=== PATIENT | male | born 1945 | race Two or more races ===

== ENCOUNTER 2024-11-23 17:28 | Emergency (ER) | payer MEDICARE, MEDICAID, SELFPAY ==
[2024-11-23 17:29] VITALS: BMI 29.9
--- NOTE | 2024-11-23 17:29 | EKG_ITS ---
[facility] Test Date: 2024-11-23 Pat Name: HAYDEN WILSON Department: Room: - Gender: Male Ultrasound Manager: : 1945 Requested By: Larry Rodriguez (IRVIN) Order Number: [id number] Reading MD: Larry Rodriguez (MASONRY TEACHER) Measurements Intervals [place] Rate: 76 P: 94 MO: 195 QRS: -73 QRSD: 147 T: 39 QT: 402 QTc: 453 Interpretive Statements SINUS RHYTHM WITH OCCASIONAL SUPRAVENTRICULAR PREMATURE COMPLEXES LEFT AXIS DEVIATION [QRS AXIS < -30] RIGHT BUNDLE BRANCH BLOCK [120+ ms QRS DURATION, UPRIGHT V1, 40+ ms S IN I/aVL/V4/V5/V6] POSSIBLE SEPTAL MYOCARDIAL INFARCTION , PROBABLY OLD [30 ms Q WAVE IN V1/V2] No previous ECG available for comparison /store/S0/[id number].pdf
[2024-11-23 17:49] VITALS: BP 142/87; PULSE 82; RESP 20; TEMP 37.1; O2SAT 95
--- NOTE | 2024-11-23 17:52 | XR_ITS ---
Examination: PA chest single view TECHNIQUE: Upright PA chest single view Date and time: November 23, 2024 1758 hours Comparison September 12, 2015 INDICATIONS: Chest pain today. FINDINGS: Normal heart size Stable granuloma left upper lobe. No unremarkable pneumonia or pulmonary edema. Moderate osteopenia IMPRESSION: No interval pneumonia or pulmonary edema
--- NOTE | 2024-11-23 17:52 | XR_ITS ---
Examination: CT brain head without contrast. 2-D sagittal coronal reconstructions Date and time of exam:02/23/2025 at 1815 hours Comparison December 06, 2010 INDICATIONS: Onset headache dizziness today CTDI: vol (mGy):43.5 DLP: (mGycm):815 Technique: Multiple CT axial sections of the brain have been obtained, 5 mm slice thickness. Contrast has not been administered. 2-D sagittal, coronal reconstructions have been obtained Low dose protocols were performed. One or more of the following dose reduction techniques were used; automated exposure control, adjustment of the mA and/or KV according to patient size, use of iterative reconstruction technique. Findings: No significant ventricular enlargement. Sclerotic calcified right optic globe Intra-axial or extra-axial hemorrhage density is not seen. No mass effect or midline shift Basal cisterns are not remarkable. Fourth ventricle is midline. Cranial vault intact. Impression: Negative for acute hemorrhage, mass effect or midline shift Acute ethmoid and sphenoid sinusitis
--- NOTE | 2024-11-23 17:53 | PD.EDRME ---
Rapid Medical Screening Exam RME Arrival date/time: 11/23/24 17:28 79-year-old male with developmental delay presents with sister who reports the patient has been having headaches and dizziness ongoing for the last couple of months Chief Complaint: Dizziness Time Seen by Provider: 11/23/24 17:30 Vital signs: Vital Signs Temperature 98.8 F 11/23/24 17:49 Pulse Rate 82 11/23/24 17:49 Respiratory Rate 20 11/23/24 17:49 Blood Pressure 142/87 H 11/23/24 17:49 Pulse Oximetry (%) 95 11/23/24 17:49 Oxygen Delivery Method Room Air 11/23/24 17:49
--- NOTE | 2024-11-23 19:13 | EDNOTE_ITS ---
ED Dizzyness RME/HPI General Chief Complaint: Dizziness Stated Complaint: DIZZINESS Time Seen by Provider: 11/23/24 17:30 Arrival date/time: 11/23/24 17:28 RME / HPI RME / HPI Narrative: 11/23/24 17:28 79-year-old male with developmental delay presents with sister who reports the patient has been having headaches and dizziness ongoing for the last couple of months This section includes all my notes and documentations, including HPI, PE, and ED course. 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 Sister states the patient normally ambulates with his walker. No fever or chills reported. No other complaints reported at this time. ROS: All negative except as documented in HPI. Physical Exam: General: Alert and oriented. Sinus congestion noted. Eyes: Conjunctivae and lids clear. ENT: Maxillary sinus tenderness with palpation bilaterally. Neck: Supple. Heart: RRR. Lungs: No respiratory distress. Good air movement. No rhonchi, wheezing, rales. Skin: Warm and dry. Neuro: Alert and oriented X 3. Cranial nerves II to XII grossly normal. No peripheral motor deficits. I reviewed all diagnostic test results. My interpretation of the EKG is sinus rhythm with no acute ST?T changes. My interpretation of the chest x-ray is negative for any acute findings. My review of the CT head report is acute ethmoid and sphenoid sinusitis. Blood tests and urine tests are unremarkable. Bedside COVID and Influenza swabs are negative. At this point, diagnoses include sinusitis. Treatment here included Augmentin. Recommend outpatient treatment. Based on my best medical judgment, made decision no further evaluation or treatment indicated at this time. Patient understands and agrees to the discharge instructions customized and printed, see below. Discharge Instructions from Dr. Anguiano: 1. After extensive evaluation, there is no life-threatening condition. Such as stroke or brain tumor or heart attack or pneumothorax (collapsed lung). You have severe sinus infection. Take Augmentin to kill the germs causing your sinus infection. 2. And prednisone to help decrease inflammation in your sinuses. 3. Tylenol/ibuprofen as needed. 4. Increase oral fluid. Your body needs extra when you are sick. 5. See a private doctor on 11/25/2024 for recheck. Ask to review all test results and official radiology reports, to make sure you receive all necessary follow-ups and monitoring. Ask for help until you are completely better. 6. Seek immediate medical care with worsening or with any concerns. William Anguiano MD Related Data Previous Rx's ?Medication ?Instructions ?Recorded albuterol sulfate 90 mcg/actuation 2 puff inhalation Q 6HR PRN 09/13/15 aerosol inhaler (ProAir HFA) SHORTNESS OF BREATH #1 in h amoxicillin 875 mg-potassium 1 tab PO BID #20 tabs clavulanate 125 mg tablet prednisone 20 mg tablet 20 mg PO QDAY 3 days #3 tabs 11/23/24 Allergies Allergy/AdvReac Type Severity Reaction Status Date / Time avocado Allergy Severe ANXIETY Verified 11/23/24 17:29 cinnamon Allergy Severe ANXIETY Verified 11/23/24 17:29 egg Allergy Severe ANXIETY Verified 11/23/24 17:29 Review of Systems Review of Systems Systems Reviewed: All systems reviewed, normal except as documented Past Medical History Social History SMOKING STATUS: Never smoker ED Exam Narrative Physical exam: As noted in HPI. Course Quality Measures none Orders Category Date Time Status Bedside COVID-19 Antigen Test NOW Care 11/23/24 19:28 Active Bedside Influenza A&B Antigen Test NOW Care 11/23/24 19:28 Completed EKG (ED ONLY) *Do not use* NOW Care 11/23/24 17:[address] head/brain wo con Stat Exams 11/23/24 17:52 Completed EKG (ED Only) Stat Exams 11/23/24 17:29 Draft XR chest 1V Stat Exams 11/23/24 17:52 Completed B-Type Natriuretic Peptide Stat Lab 11/23/24 18:59 Completed CBC Stat Lab 11/23/24 18:59 Completed Comprehensive Metabolic Panel Stat Lab 11/23/24 18:59 Completed Drug Screen,Urine Stat Lab 11/23/24 19:03 Completed Magnesium Stat Lab 11/23/24 18:59 Completed Partial Thromboplastin Time Stat Lab 11/23/24 18:59 Completed Prothrombin Time with INR Stat Lab 11/23/24 18:59 Completed Troponin I Stat Lab 11/23/24 18:59 Completed Urinalysis Stat Lab 11/23/24 19:03 Completed Amoxicillin/Pot Clav 875 [Augmentin 875] Med 11/23/24 20:06 Discontinued 1 tab PO X1 ONE Vital Signs Vital signs: Vital Signs Temperature 98.8 F 11/23/24 17:49 Pulse Rate 82 11/23/24 17:49 Respiratory Rate 20 11/23/24 17:49 Blood Pressure 142/87 H 11/23/24 17:49 Pulse Oximetry (%) 95 11/23/24 17:49 Oxygen Delivery Method Room Air 11/23/24 17:49 Dizziness MDM Narrative MDM Narrative:: Scribe Attestation: 11/23/24 - Moni Pope am scribing for and in the presence of Dr. Anguiano. 79yo male with a history of developmental delay, arthritis brought in by his sister presents to the ED for complaints of headache and dizziness. Sister states the patient normally ambulates with his walker. She states the patient has been complaining of a headache, dizziness, and tingling to his hands and feet today. No fever or chills reported. No other complaints reported at this time. Patient data External records reviewed:: [facility] previous records (Per chart review, patient has no previous ED visits or admissions to this facility.) Clinical information provided by:: patient Social determinants that could affect healthcare access:: none Patient has the following chronic illnesses:: developmental delay, arthritis How is presenting disease/condition affected by chronic disease/condition?: uneffected by Evaluation data The following diagnostics were reviewed and interpreted by me:: lab results, radiology exam(s) and EKG tracing(s) Lab and/or radiology exams considered but not ordered:: none Interpretation Summary: I reviewed all diagnostic test results. My interpretation of the EKG is sinus rhythm with no acute ST?T changes. My interpretation of the chest x-ray is negative for any acute findings. My review of the CT head report is acute ethmoid and sphenoid sinusitis. Blood tests and urine tests are unremarkable. Bedside COVID and Influenza swabs are negative. Medications / Prescriptions Medications or Prescriptions considered but not ordered:: none Medication administrations:: Medication Administration History Discontinued Medications Amoxicillin/Clavulanate Potassium (Amoxicillin/Pot Clav 875 Tablet) 1 tab PO X1 ONE Stop: 11/23/24 20:07 Last Admin: 11/23/24 20:40 Dose: 1 tab Documented By: SE Augmentin Consultations Consultation(s) initiated? (list below): No Diagnosis Dizziness Differential Diagnosis: benign paroxysmal positional vertigo, orthostatic hypotension, cerebrovascular accident, transient cerebral ischemia and other (Sinusitis, psychogenic) Most likely diagnosis given after review of the tests above:: Sinusitis Admission Indicated Admission indicated?: not indicated Explain why admission is indicated or not indicated:: With no severe illness, there was no indication for admission. Admission Request Was there a request for admission?: No Disposition Plan Disposition Plan: Discharge Discharge Attestation Discharge Attestation: The patient and all family members were given an opportunity to ask questions and understood the discharge instructions. Discharge instructions specifically effects, indications for sooner follow up or return to the emergency department, and the expected course of current diagnosis. Patient condition: Stable Discharge Plan Plan Patient Disposition: HOME (Self Care) Prescriptions/Referrals Prescriptions/Med Rec: New prednisone 20 mg tablet 20 mg PO QDAY 3 Days Qty: 3 0RF Taper: Prednisone Taper 20 mg DAILY for 2 Days and 0 Hour 10 mg DAILY for 2 Days and 0 Hour 5 mg DAILY for 7 Days and 0 Hour amoxicillin-pot clavulanate 875-125 mg tablet 1 tab PO BID Qty: 20 0RF No Action albuterol sulfate [ProAir HFA] 8.5 GM HFA aerosol inhaler 2 puff Inhalation Q6HR PRN (Reason: SHORTNESS OF BREATH) Qty: 1 0RF Referrals: Josep Roche MD [Primary Care Provider] - In 1 week Problem List Clinical Impression: Sinusitis Patient/Caregiver Discharge Instructions Discharge Activity: activity as tolerated Education Materials: ED Sinusitis (Antibiotic Treatment) Additional Instructions: Discharge Instructions from Dr. Anguiano: 1. After extensive evaluation, there is no life-threatening condition.? Such as stroke or brain tumor or heart attack or pneumothorax (collapsed lung). You have severe sinus infection. Take Augmentin to kill the germs causing your sinus infection. 2. And prednisone to help decrease inflammation in your sinuses. 3. Tylenol/ibuprofen as needed. 4. Increase oral fluid.? Your body needs extra when you are sick. 5. See a private doctor on 11/25/2024 for recheck. Ask to review all test results and official radiology reports, to make sure you receive all necessary follow-ups and monitoring. Ask for help until you are completely better. 6. Seek immediate medical care with worsening or with any concerns. Instrucciones de durga del Dr. Anguiano: 1. Tras trang evaluaci?n exhaustiva, no se observa ninguna afecci?n potencialmente mortal, bao un derrame cerebral, un tumor cerebral, un ataque card?aco o un neumot?rax (colapso pulmonar). Tiene trang infecci?n sinusal grave. [place] Augmentin para eliminar los g?rmenes que causan la infecci?n. 2. Y prednisona para ayudar a disminuir la inflamaci?n de los senos paranasales. 3. Tylenol/ibuprofeno seg?n sea necesario. 4. Aumente la ingesta de l?quidos. Lucas cuerpo necesita m?s cuando est? enfermo. 5. Consulte con un m?dico particular el 25/11/2024 para trang nueva revisi?n. Solicite la revisi?n de todos los resultados de las pruebas y los informes radiol?gicos oficiales para asegurarse de recibir todos los controles y monitoreo necesarios. Solicite ayuda hasta que se recupere por completo. 6. Busque atenci?n m?dica inmediata si lucas condici?n empeora o tiene alguna inquietud. Print Language: Bahamian Stand Alone Forms: Laina Award Info., Patient Portal Info Letter
[2024-11-23 19:19] LABS: Collection Type, Urine Clean Catch
[2024-11-23 19:22] LABS: Basophils % (Auto) 0 % (0-2.5); Eosinophils # (Auto) 0.1 Thou/mm3 (0.0-0.5); Eosinophils % (Auto) 2 % (0-10); Hematocrit 32.3 % (41.0-53.0); Hemoglobin 11.8 g/dL (13.5-16.0); Immature Granulocytes % (Auto) 0 % (0-0); Lymphocytes # (Auto) 0.9 Thou/mm3 (1.0-4.8); Lymphocytes % (Auto) 24 % (10-50); Mean Corpuscular HGB Conc 36.5 g/dl (31.0-37.0); Mean Corpuscular Hemoglobin 32.5 pg (25.0-35.0); Mean Corpuscular Volume 89 fL (80-100); Monocytes # (Auto) 0.4 Thou/mm3 (0.0-0.8); Monocytes % (Auto) 11 % (0-12); Neutrophils # (Auto) 2.4 Thou/mm3 (1.8-7.7); Neutrophils % (Auto) 63 % (37-80); Nucleated Red Blood Cell % 0 /100 WBC (0); Platelet Count 189 Thou/mm3 (140-440); RDW Standard Deviation 41.9 fL (35.1-43.9); Red Blood Count 3.63 Miln/mm3 (4.50-5.90); White Blood Count 3.9 Thou/mm3 (3.8-10.6)
[2024-11-23 19:29] LABS: Bilirubin,Urine Negative (Negative); Blood,Urine Negative (Negative); Clarity,Urine Clear (Clear/Hazy); Color,Urine Lt-Yellow (Lt Yel-Yel); Glucose, Urine Negative (Negative); Ketones,Urine Negative (Negative); Leukocyte Esterase,Urine Negative (Negative); Nitrite,Urine Negative (Negative); PH,Urine 6.5 (5.0-7.0); Protein,Urine Negative (Neg - Trace); RBC,Urine 4 /hpf (0-3); Specific Gravity,Urine 1.018 (1.001-1.035); Squamous Epithelial Cell,Urine < 1 /hpf (0-5); Urobilinogen,Urine Negative mg/dL (0.0-1.0); WBC,Urine < 1 /hpf (0-5)
[2024-11-23 19:36] LABS: Partial Thromboplastin Time 30.3 Seconds (22.0-36.0)
[2024-11-23 19:38] LABS: Amphetamine/Methamp Scrn,U Negative (Negative); Barbiturate Screen,Urine Negative (Negative); Benzodiazepines Screen,Urine Negative (Negative); Benzoylecgonine Screen, Ur Negative (Negative); Fentanyl Screen,Urine Negative (Negative); Opiate Screen,Urine Negative (Negative); THC Screen,Urine Negative (Negative)
[2024-11-23 19:43] LABS: Alanine Aminotransferase 14 U/L (10-49); Albumin, Serum 4.2 gm/dL (3.4-4.8); Albumin/Globulin Ratio 1.6 (1.2-2.2); Alkaline Phosphatase 110 U/L (46-116); Anion Gap 9 (7-16); Aspartate Amino Transferase 19 U/L (0-34); BUN/Creatinine Ratio 23 Ratio (12-20); Bilirubin,Total 0.4 mg/dL (0.3-1.2); Blood Urea Nitrogen 18 mg/dL (9-23); Calcium 9.9 mg/dL (8.3-10.6); Calcium (Corrected) 9.9 mg/dL (8.5-10.1); Carbon Dioxide 24.4 mMol/L (20.0-31.0); Chloride 106 mMol/L (98-107); Creatinine (Component) 0.8 mg/dL (0.6-1.3); Estimated Creatinine Clearance 61.2 mL/min (>60); Globulin 2.6 gm/dL (2.3-3.5); Glucose 89 mg/dL (74-106); Magnesium 1.8 mg/dL (1.6-2.6); Osmolality,Calculated 278 (275-295); Potassium 3.9 mMol/L (3.4-5.1); Sodium 139 mMol/L (136-145); Total Protein 6.8 gm/dL (5.7-8.2); Troponin I < 0.020 ng/mL (0.0-0.045); eGFR > 60 See Note
[2024-11-23 20:03] LABS: B-Type Natriuretic Peptide 175 pg/mL (0-100)
[2024-11-23] MEDS: AMOXICILLIN/POT CLAV 875 TABLET 1 TAB PO (20:40)
== END 2024-11-23 20:47 | disposition home or self-care (01) ==
PROVIDERS: Nurse Practitioner Primary Care; Emergency Provider Emergency Medicine; PCP Family Medicine
DX: J01.80 Other acute sinusitis (principal)
CPT/HCPCS: 36415; 70450; 71045; 80053; 80307; 81001; 83735; 83880; 84484; 85025; 85610; 85730; 87400; 87811; 93005; 99284; A9270